=== PATIENT | female | born 1955 | race Caucasian/White ===

== ENCOUNTER 2017-07-24 19:57 | Emergency (ER) | payer OTHER ==
[~2017-07-24] VITALS: Ht 162.6 cm; Wt 95.3 kg
[~2017-07-24 19:57] MED LIST: CIPROFLOXACIN500 M1 PO; FLAGYL500 MG PO; NORCO 5-325 TA1 EACH PO; ZOFRAN ODT4 MG PO
[2017-07-24 20:19] LABS: URINE BILIRUBIN NEGATIVE (Negative); URINE BLOOD TRACE (Negative); URINE CLARITY CLEAR; URINE COLOR YELLOW; URINE GLUCOSE-RANDOM NEGATIVE (Negative); URINE KETONES NEGATIVE (Negative); URINE LEUKOCYTES-REFLEX 1+ (Negative); URINE NITRITE-REFLEX NEGATIVE (Negative); URINE PROTEIN TRACE (Negative); URINE SPECIFIC GRAVITY 1.025 (1.005-1.030)
[2017-07-24 20:25] LABS: HEMOGLOBIN 14.1 gm/dL (12.0-15.0); MCH 33.2 pg (26.0-34.0); MCHC 34.5 g/dL (28.0-37.0); MCV 96.3 fL (80.0-100.0); MPV 7.3 fl. (7.2-11.1); NUCLEATED RBCS 0 /100WBC; PLATELET COUNT* 314 thou/uL (150-400); RBC 4.26 mil/uL (4.20-5.00); RDW-CV 12.4 % (10.5-14.5); WBC 8.7 thou/uL (4.0-11.0)
[2017-07-24 20:27] LABS: MUCUS 0-3 Light strn/LPF (None Seen); SQUAMOUS >10 Many /LPF (0-3)
[2017-07-24 20:28] LABS: BACTERIA-REFLEX 1-9 Few /HPF (None Seen); CRYSTALS None Seen /LPF (None Seen); HYALINE CASTS 0-3 Few /LPF (None Seen); URINE RBC 0-2 Rare /HPF (0-2); URINE WBC-REFLEX 0-5 Rare /HPF (0-5)
[2017-07-24 20:36] LABS: ANION GAP 5 mmol/L (7-16); BUN 15 mg/dL (7-18); CALCIUM 8.7 mg/dL (8.5-10.1); CHLORIDE 104 mmol/L (98-107); CO2 33 mmol/L (21-32); CREATININE 0.9 mg/dL (0.6-1.3); GLUCOSE 132 mg/dL (70-99); POTASSIUM 3.6 mmol/L (3.5-5.1); SODIUM 142 mmol/L (136-145)
[2017-07-24 20:37] LABS: PROTIME 9.9 Seconds (9.20-11.50)
[2017-07-24 20:47] LABS: ALBUMIN 3.9 g/dL (3.4-5.0); ALKALINE PHOSPHATASE 97 U/L (46-116); LIPASE 75 U/L (73-393); NT-PRO BRAIN NAT PEPTIDE 82 pg/mL (<300); SGOT 16 U/L (15-37); SGPT 25 U/L (30-65); TOTAL BILIRUBIN 0.8 mg/dL (<0.1-1.0); TOTAL PROTEIN 7.7 g/dL (6.4-8.2); TROPONIN-I LEVEL <0.06 ng/mL (<0.06)
[2017-07-24 20:51] LABS: ABSOLUTE EOSINOPHILS 0.3 thou/uL (0.0-0.7); ABSOLUTE MONOCYTES 0.6 thou/uL (0.0-1.2); ABSOLUTE NEUTROPHILS 6.8 thou/uL (1.6-8.1)
[2017-07-24 20:52] LABS: CLUMPED PLTS OCCASIONAL; PLATELET ESTIMATE ADEQUATE
[2017-07-24] MEDS ORDERED: CIPROFLOXACIN500 M1 PO (21:59)
[2017-07-24] MEDS ORDERED: FLAGYL500 MG PO (21:59)
[2017-07-24] MEDS ORDERED: ZOFRAN ODT4 MG PO (21:59)
[2017-07-24 22:10] VITALS: BP 153/72
--- NOTE | 2017-07-25 14:44 | EKG ---
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
[2018-02-27] MEDS ORDERED: TYLENOL EXTRA500 MG PO (08:40)
== END 2017-07-24 22:11 | disposition home or self-care (01) ==
LOC: M.ERS 19:57
PROVIDERS: Emergency Medicine
DX: R11.2 Nausea with vomiting, unspecified (principal); R19.7 Diarrhea, unspecified

== ENCOUNTER → 2017-09-11 | Outpatient (CLI) | payer OTHER ==
[~2017-09-11] MED LIST changes: +ONDANSETRON HCL4 M2 PO; +TYLENOL EXTRA500 MG PO; +UNICOMPLEX M TA1 TA1 PO
== END ==
LOC: M.RAD 12:50
DX: Z12.31 Encounter for screening mammogram for malignant neoplasm of breast (principal)

== ENCOUNTER 2018-02-21 10:04 | Emergency (ER) | payer OTHER ==
[~2018-02-21] VITALS: Ht 162.6 cm; Wt 95.3 kg
[~2018-02-21 10:04] MED LIST changes: -ONDANSETRON HCL4 M2 PO; -TYLENOL EXTRA500 MG PO; -UNICOMPLEX M TA1 TA1 PO
[2018-02-21 11:41] LABS: ABSOLUTE BASOPHILS 0.1 thou/uL (0.0-0.2); ABSOLUTE EOSINOPHILS 0.1 thou/uL (0.0-0.7); ABSOLUTE LYMPHOCYTES 1.4 thou/uL (0.8-5.3); ABSOLUTE MONOCYTES 0.5 thou/uL (0.0-1.2); EOSINOPHILS 2.9 %; HEMATOCRIT 36.8 % (37.0-47.0); HEMOGLOBIN 12.6 gm/dL (12.0-15.0); MCH 33.1 pg (26.0-34.0); MCHC 34.3 g/dL (28.0-37.0); MCV 96.5 fL (80.0-100.0); MONOCYTES 9.4 %; MPV 7.4 fl. (7.2-11.1); NUCLEATED RBCS 0 /100WBC; PLATELET COUNT* 333 thou/uL (150-400); POLYS 58.7 %; RBC 3.82 mil/uL (4.20-5.00); RDW-CV 12.2 % (10.5-14.5); WBC 5.1 thou/uL (4.0-11.0)
[2018-02-21 11:51] LABS: CALCIUM 8.9 mg/dL (8.5-10.1); CREATININE 0.8 mg/dL (0.6-1.3)
[2018-02-21 11:58] LABS: ALBUMIN 3.6 g/dL (3.4-5.0); TOTAL BILIRUBIN 0.4 mg/dL (<0.1-1.0); TOTAL PROTEIN 7.3 g/dL (6.4-8.2)
[2018-02-21] MEDS ORDERED: ONDANSETRON HCL4 M2 PO (13:25)
[2018-02-21] MEDS ORDERED: NORCO 5-325 TA1 EACH PO (13:25)
[2018-02-21 14:09] VITALS: BP 162/79
[2018-02-27] MEDS ORDERED: TYLENOL EXTRA500 MG PO (08:40)
== END 2018-02-21 14:10 | disposition home or self-care (01) ==
LOC: M.ERS 10:04
PROVIDERS: Nurse Practitioner Family
DX: S82.852A Displaced trimalleolar fracture of left lower leg, initial encounter for closed fracture (principal); W10.8XXA Fall (on) (from) other stairs and steps, initial encounter; Y93.89 Activity, other specified; Y92.89 Other specified places as the place of occurrence of the external cause; Y99.8 Other external cause status

== ENCOUNTER 2018-03-02 11:20 | Observation (INO) | payer OTHER ==
[~2018-03-02] VITALS: Ht 162.6 cm; Wt 114.8 kg
--- NOTE | ~2018-03-02 | OP ---
[address] [address] OPERATIVE REPORT Name: DIANA WYLIE Room: [address] Norberto#: [id number] Admission: 03/02/18 Attend Phys: Tulio Olvera Discharge: Date of : 55 Report #: [id number] THIS REPORT FOR: //name// CC: Chetan Tang DATE OF SERVICE: 03/02/2018 PREOPERATIVE DIAGNOSIS: Left closed displaced bimalleolar ankle fracture. POSTOPERATIVE DIAGNOSIS: Left closed displaced bimalleolar ankle fracture. PROCEDURE: Open reduction internal fixation of left bimalleolar ankle fracture. SURGEON: Kanchan Garza DO ASSESSMENT TECHNICIAN: Donna Rivera DO. ANESTHESIA: General as well as 20 mL of 0.5% Marcaine with epinephrine and 20 mL of 1% lidocaine plain. ESTIMATED BLOOD LOSS: 25 mL. SPECIMENS: None. DRAINS: None. COMPLICATIONS: None. CONDITION: The patient is stable. DISPOSITION: PACU to home once awake and alert. ANTIBIOTICS: 2 grams Ancef IV preoperatively. TOURNIQUET: 76 minutes at 250 mmHg. IMPLANTS: Arthrex ankle fracture system with a distal fibula locking plate and 4.0 mm cannulated screws x 2. INDICATIONS FOR PROCEDURE: The patient is a very pleasant 62-year-old female who presented to my outpatient clinic regarding left ankle pain after a fall at home. She was noted to have a displaced bimalleolar ankle fracture. I did recommend operative fixation of this. She was quite swollen initially in clinic. We decided to wait 1 week for the swelling to go down and soft tissue to be amenable to surgery. The skin was checked [place] [address] OPERATIVE REPORT Name: INESSADIANA A Room: [address] Symone Thornton#: [id number] Admission: 03/02/18 Attend Phys: Tulio Olvera Discharge: Date of : 55 Report #: [id number] area today and noted to be ready to go. The benefits, risks, complications, and alternatives of this procedure were discussed with the patient in detail. These include but are not limited to bleeding, surgical site infection, neurovascular compromise, hardware failure, nonunion, malunion, continued pain, need for further surgery, posttraumatic arthritis, DVT, PE as well as inherent risks of anesthesia. The patient understands these risks and is agreeable to proceed. Consent was signed in the preoperative holding area and on the chart at the time of surgery. DESCRIPTION OF PROCEDURE: The patient was brought to the operating room and placed supine on the operating table. She was administered general anesthetic. A well-padded tourniquet was placed on the proximal portion of the left thigh. Left lower extremity was then sterilely prepped with chlorhexidine scrub, alcohol rinse, ChloraPrep x 2 and draped free in the usual fashion. A timeout was performed confirming correct patient, site, procedure. Surgical site markings were identified and all in the room in agreement. The procedure began with exsanguination of the left lower extremity with an Esmarch and inflation of the tourniquet to 250 mmHg. Next, a standard lateral incision was made directly over the distal fibula. Incision was carried down to the level of bone. Care was taken to protect the superficial peroneal nerve. Fracture was identified. Fracture hematoma was cleaned and the fracture was then reduced with [id number] reduction clamps to appropriate position. Reduction was confirmed with C-arm fluoroscopy. Next, a decision was made to use a distal fibular locking plate due to poor bone quality. Appropriate sized plate was chosen. This was held in place with 2 BB tacks. Plate positioning was confirmed with C-arm. Next, we drilled, measured and filled the distal holes in the plate with appropriate length 2.7 mm locking screws. We then drilled, measured and filled the top screws in the plate with 3.5 mm cortical nonlocking screws. At this time, the reduction forceps were removed and fracture was noted to be stable. We then turned our attention to the medial aspect. An incision was made directly over the medial malleolus. Dissection carried down to the level of the periosteum. Periosteum was then incised. The fracture was identified. Fracture hematoma was cleared. The fracture was then reduced with a dental pick. Two K-wires were passed across the fracture site and into the tibia with positioning confirmed with C-arm fluoroscopy. Next, we overdrilled the proximal cortex and the near cortex with the appropriate cannulated drill bit and two 40 mm partially threaded cannulated screws were placed over the K-wires with noted to be excellent reduction of the medial malleolus fracture. At this time, K wires were removed. C-arm was then used and a stress view was taken as well as Cotton test was performed and the syndesmosis was noted to be stable with no medial clear space widening. Therefore, we then irrigated the wounds with saline. Deep tissues were closed with 0 Vicryl suture in simple interrupted fashion. Subcutaneous tissues were closed with 2-0 Vicryl suture and skin was reapproximated with 3-0 nylon. Approximately 40 mL of local was injected around the incisions. We then dressed the wounds with Xeroform, 4 x 4s, ABD, soft roll and a well-padded posterior and U-plaster splint was applied. [address] [address] OPERATIVE REPORT Name: WYLIEDIANA Room: [address] Symone Thornton#: [id number] Admission: 03/02/18 Attend Phys: Tulio Olvera Discharge: Date of : 55 Report #: [id number] The patient tolerated the procedure well and was transferred to PACU in stable condition. Tourniquet had been let down at 76 minutes. POSTOPERATIVE PLAN: The patient will be discharged from PACU to home once awake and alert. She will be nonweightbearing on the left lower extremity. She is to maintain the splint clean and dry. I will see her back in clinic in 1 week for reevaluation and splint removal and they were to call with any further questions or concerns. By: 1454 [id number] Garza DO /sonya
[~2018-03-02 11:20] MED LIST changes: +ONDANSETRON HCL4 M2 PO; +TYLENOL EXTRA500 MG PO
[2018-03-02] MEDS ORDERED: UNICOMPLEX M TA1 TA1 PO (11:38)
[2018-03-02 17:00] VITALS: BP 153/82
--- NOTE | 2018-03-02 18:12 | EKG ---
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: : 1955 Requested By: Kanchan Garza Order Number: [id number] Reading MD: Chetan Mark Measurements Intervals [place] Rate: 76 P: 43 SC: 157 QRS: 27 QRSD: 101 T: 7 QT: 375 QTc: 422 Interpretive Statements Sinus rhythm Borderline T wave abnormalities Compared to ECG 07/24/2017 20:31:51 Sinus tachycardia no longer present T-wave abnormality still present Electronically Signed On 03-02-2018 18:12:33 CDT by Chetan Mark [email or web address] <ELECTRONICALLY SIGNED> By: Chetan Mark MD, [facility] 03/02/18 181 1144 1144 Chetan Mark MD, [facility] /EPI
--- NOTE | 2018-03-02 19:33 | NUR ---
Pt transferred to [facility] at 1700. Pt in PACU for ORIF Left ankle, pt c/o pain while in recovery, mutiple meds given to reduce pain, pt also received adductor canal block LLE.Pt admitted to Room 106 for pain control, pt is NWB to LLE, PT to eval pt tomorrow morning, pt VS stable and has no c/o for this nurse on [facility], Dr. Tang assuming care and orders in EMR. Hourly rounding maintained, nursing will cont to monitor, call light in reach.
[2018-03-02 20:25] VITALS: BP 138/70
[2018-03-03 00:34] VITALS: BP 149/59
[2018-03-03 05:05] LABS: HEMATOCRIT 35.1 % (37.0-47.0); HEMOGLOBIN 12.1 gm/dL (12.0-15.0)
--- NOTE | 2018-03-03 05:15 | NUR ---
PATIENT ALERT AND ORIENTED X 4. VITALS STABLE. ON 3L OF OXYGEN. VOIDING PER BEDPAN. LEFT ANKLE DRESSING C/D/I. LLE ELEVATED ON PILLOW. PAIN CONTROLLED. DENIES NAUSEA. SLEPT COMFORTABLY THROUGH THE NIGHT. HOURLY ROUNDS. BED ALARM IN USE. NURSING WILL CONTINUE TO MONITOR.
[2018-03-03 07:45] VITALS: BP 155/66
[2018-03-03 10:12] VITALS: BP 155/66
[2018-03-03] MEDS ORDERED: NORCO 5-325 TA1 EACH PO (10:49)
[2018-03-03 11:15] VITALS: BP 155/66
--- NOTE | 2018-03-03 12:00 | NUR ---
PT ALERT AND ORIENTED X 4. DENIES NAUSEA. INDICATED PAIN WITH MOVEMENT OF LEFT LEG-08/22, RECEIVED TYLENOL FOR PAIN. DRESSING C/D/I ON LEFT LEG. VS STABLE. PT ON RA. NON-WEIGHTBEARING ON LEFT LOWER EXTREMITY. UP TO CHAIR WITH THERAPY. ABLE TO USE KNEE WALKER FOR MOBILITY. IV REMOVED. PT GIVEN DISCHARGE INSTRUCTIONS AND PRESCRIPTION. PT LEFT AT 1152 WITH SPOUSE AND PERSONAL BELONGINGS TO LEAVE BY PRIVATE CAR.
[2018-03-03 12:37] VITALS: BP 155/66
== END 2018-03-03 11:52 | disposition home or self-care (01) ==
LOC: M.SUR 11:20 → M.ORTHSURG 16:05 → M.TBA 16:05 → M.ORTHSURG 16:05
PROVIDERS: Orthopaedic Surgery; ADMIT Internal Medicine
DX: S82.842A Displaced bimalleolar fracture of left lower leg, initial encounter for closed fracture (principal); R52 Pain, unspecified; X58.XXXA Exposure to other specified factors, initial encounter; Y93.89 Activity, other specified; Y92.89 Other specified places as the place of occurrence of the external cause; Y99.8 Other external cause status; Z98.890 Other specified postprocedural states

== ENCOUNTER → 2018-09-13 | Outpatient (CLI) | payer OTHER ==
[~2018-09-13] MED LIST changes: +UNICOMPLEX M TA1 TA1 PO
== END ==
LOC: M.RAD 13:00
DX: Z12.31 Encounter for screening mammogram for malignant neoplasm of breast (principal)

== ENCOUNTER → 2018-10-17 | Outpatient (CLI) | payer OTHER ==
[2018-10-17 15:17] LABS: HEMATOCRIT 40.6 % (37.0-47.0); HEMOGLOBIN 13.8 gm/dL (12.0-15.0); MCH 32.5 pg (26.0-34.0); MCHC 34.1 g/dL (28.0-37.0); MCV 95.3 fL (80.0-100.0); MPV 7.6 fl. (7.2-11.1); NUCLEATED RBCS 0 /100WBC; PLATELET COUNT* 325 thou/uL (150-400); RBC 4.26 mil/uL (4.20-5.00); WBC 5.4 thou/uL (4.0-11.0)
[2018-10-17 15:43] LABS: ALBUMIN 3.8 g/dL (3.4-5.0); ALKALINE PHOSPHATASE 93 U/L (46-116); ANION GAP 8 mmol/L (7-16); BUN 14 mg/dL (7-18); CALCIUM 9.2 mg/dL (8.5-10.1); CHLORIDE 102 mmol/L (98-107); CHOLESTEROL 175 mg/dL (<200); CO2 29 mmol/L (21-32); CREATININE 0.8 mg/dL (0.6-1.3); DIRECT BILIRUBIN 0.1 mg/dL (<0.1-0.3); GLUCOSE 117 mg/dL (70-99); HDL CHOLESTEROL 46 mg/dL (>40); LDL CHOLESTEROL 100 mg/dL (<100); POTASSIUM 3.9 mmol/L (3.5-5.1); SGOT 16 U/L (15-37); SGPT 23 U/L (30-65); SODIUM 139 mmol/L (136-145); TC:HDL 3.8 Ratio (Not establshd); TOTAL BILIRUBIN 0.5 mg/dL (<0.1-1.0); TOTAL PROTEIN 7.6 g/dL (6.4-8.2); TRIGLYCERIDE 147 mg/dL (<150); VLDL 29 mg/dL (<40)
[2018-10-17 15:48] LABS: SERUM ASSESSMENT Clear
[2018-10-17 16:05] LABS: ABSOLUTE EOSINOPHILS 0.1 thou/uL (0.0-0.7); ABSOLUTE LYMPHOCYTES 2.3 thou/uL (0.8-5.3); ABSOLUTE MONOCYTES 0.3 thou/uL (0.0-1.2); ABSOLUTE NEUTROPHILS 2.7 thou/uL (1.6-8.1)
[2018-10-17 16:06] LABS: PLATELET ESTIMATE ADEQUATE
[2018-10-18 02:08] LABS: GLYCOHEMOGLOBIN (HGB A1C) 6.1 % (4.8-5.6)
== END ==
LOC: M.RAD 14:45
PROVIDERS: Registered Nurse Diabetes Educator
DX: Z13.1 Encounter for screening for diabetes mellitus (principal); M85.88 Other specified disorders of bone density and structure, other site; Z68.38 Body mass index [BMI] 38.0-38.9, adult

== ENCOUNTER → 2018-11-13 | Outpatient (CLI) | payer OTHER ==
--- NOTE | 2018-11-13 18:37 | EXE ---
[place] [address] STRESS ECHOCARDIOGRAM Name: WYLIEDIANA Room: [facility]#: [id number] Admission: 11/13/18 Attend Phys: William Newby, Discharge: Date of : 55 Date of Service: 11/13/18 1836 Report #: [id number] THIS REPORT FOR: //name// APPROVED REPORT Study performed: 11/13/2018 15:33:54 Exam: Stress Echocardiogram Indication: Palpitations Patient Location: Out-Patient Stress Nurse: Sandra Tam RN Supervising Physician: William Newby MD Ht: 5 ft 4 in HR: 82 bpm BP: 145/91 mmHg Medical History Cardiac Risk Factors: FHX of CAD Procedure The patient underwent an Exercise Stress Test using the Marcio Protocol. Blood pressure, heart rate, and EKG were monitored. An Echocardiogram was performed by mold repair technician in four stages in quad fashion. At peak stress, four selected images were obtained and placed side by side with resting images for comparison. Stress Test Details Stress Test: Exercise stress testing was performed using a Marcio protocol. HR Resting HR: 82 bpm Max Heart Rate (APMHR): 157 bpm Max HR Achieved: 143 bpm Target HR (85% APMHR): 133 bpm % of APMHR: 91 Recovery HR: 86 bpm HR response to stress: Normal HR response to stress BP Resting BP: 145/91 mmHg Max BP: 216/81 mmHg Recovery BP: 164/78 mmHg BP response to stress: Normal blood pressure response to stress. ECG Resting ECG: Sinus Rhythm Stress ECG: [place] [address] STRESS ECHOCARDIOGRAM Name: DIANA WYLIE Room: [facility]#: [id number] Admission: 11/13/18 Attend Phys: William Newby, Discharge: Date of : 55 Date of Service: 11/13/18 1836 Report #: [id number] ST Change: None Arrhythmia: None Recovery ECG: Sinus Rhythm Recovery ST Change: None Recovery Arrhythmia: None Clinical Reason for Termination: Maximal effort, Completed protocol Exercise duration: 4 min 05 sec Highest Stage Achieved: Stage 2: 2.5 mph at 12% grade. Exercise capacity: 5.89 METs The patient had no significant cardiac symptoms with standard Marcio protocol exercise. Stress ECG Conclusion The baseline EKG shows sinus rhythm without significant ST or T wave abnormality. EKGs obtained during and post exercise showed sinus rhythm and sinus tachycardia with no significant ST or T wave changes when compared baseline. There were no stress-induced arrhythmias. Pre-Stress Echo The resting Echocardiogram showed normal left ventricular contractility with an estimated Ejection Fraction of about 55-60%. Post-Stress Echo The stress Echocardiogram showed normal left ventricular contractility with an estimated Ejection Fraction of about >70%. Conclusion Clinical Response: Non-ischemic Exercise Capacity: Average Stress ECG Response: Non-ischemic Stress Echo Images: Non-ischemic Other Information Study Quality: Good <ELECTRONICALLY SIGNED> By: William Newby MD, [facility] 11/13/181835 35 35 William Newby MD, FACC /INF
== END ==
LOC: M.CRD 14:56
DX: R00.2 Palpitations (principal)

== ENCOUNTER 2019-03-23 08:50 | Emergency (ER) | payer OTHER ==
[~2019-03-23] VITALS: Ht 162.6 cm; Wt 97.5 kg
[2019-03-23] MEDS ORDERED: BACTRIM DS TAB1 EAC1 PO (09:14)
[2019-03-23 09:19] VITALS: BP 142/89
== END 2019-03-23 09:19 | disposition home or self-care (01) ==
LOC: M.ERS 08:50
DX: L03.116 Cellulitis of left lower limb (principal)

== ENCOUNTER → 2019-09-19 | Outpatient (CLI) | payer OTHER ==
[~2019-09-19] MED LIST changes: +BACTRIM DS TAB1 EAC1 PO
== END ==
LOC: M.RAD 12:51
DX: Z12.31 Encounter for screening mammogram for malignant neoplasm of breast (principal)

== ENCOUNTER → 2020-09-21 | Outpatient (CLI) | payer OTHER | LOC: M.RAD 12:38 | PROVIDERS: ATTEND Obstetrics & Gynecology | DX: Z12.31 Encounter for screening mammogram for malignant neoplasm of breast (principal) ==

== ENCOUNTER 2020-10-15 15:25 | Inpatient (IN) | payer OTHER ==
[~2020-10-15] VITALS: Ht 162.6 cm; Wt 100.7 kg
[2020-10-15 15:31] VITALS: BP 138/60
[2020-10-15 15:45] LABS: ABSOLUTE BASOPHILS 0.1 thou/uL (0.0-0.2); ABSOLUTE EOSINOPHILS 0.1 thou/uL (0.0-0.7); ABSOLUTE LYMPHOCYTES 2.4 thou/uL (0.8-5.3); ABSOLUTE MONOCYTES 0.7 thou/uL (0.0-1.2); ABSOLUTE NEUTROPHILS 4.4 thou/uL (1.6-8.1); BASOPHILS 1.1 %; EOSINOPHILS 1.6 %; HEMATOCRIT 38.9 % (37.0-47.0); HEMOGLOBIN 13.4 gm/dL (12.0-15.0); LYMPHOCYTES 31.4 %; MCH 32.7 pg (26.0-34.0); MCHC 34.3 g/dL (28.0-37.0); MCV 95.3 fL (80.0-100.0); MONOCYTES 8.5 %; MPV 7.3 fl. (7.2-11.1); NUCLEATED RBCS 0 /100WBC; PLATELET COUNT* 352 thou/uL (150-400); POLYS 57.4 %; RBC 4.09 mil/uL (4.20-5.00); RDW-CV 12.3 % (10.5-14.5); WBC 7.8 thou/uL (4.0-11.0)
[2020-10-15 15:56] LABS: CALCIUM 8.8 mg/dL (8.5-10.1); CREATININE 0.7 mg/dL (0.6-1.3); POTASSIUM 4.9 mmol/L (3.5-5.1)
[2020-10-15 16:06] LABS: ALBUMIN 3.7 g/dL (3.4-5.0); TOTAL BILIRUBIN 0.3 mg/dL (<0.1-1.0); TOTAL PROTEIN 7.6 g/dL (6.4-8.2)
[2020-10-15 18:35] VITALS: BP 131/63
--- NOTE | 2020-10-15 18:35 | NUR ---
ER ADMIT TO RM 209 PATIENT TO VIA CART UP INDEP TELEPHONE REPORT GIVEN PRIOR TO ARRIVAL DENIES PAIN CARDIZEM GTT at 2.5MG L AC
[2020-10-15 18:37] VITALS: BP 128/56
[2020-10-15 20:00] VITALS: BP 122/68
[2020-10-16] VITALS: BP 137/49
[2020-10-16 04:00] VITALS: BP 137/52
[2020-10-16 04:45] LABS: ABSOLUTE BASOPHILS 0.1 thou/uL (0.0-0.2); ABSOLUTE EOSINOPHILS 0.2 thou/uL (0.0-0.7); ABSOLUTE LYMPHOCYTES 2.4 thou/uL (0.8-5.3); ABSOLUTE MONOCYTES 0.6 thou/uL (0.0-1.2); ABSOLUTE NEUTROPHILS 2.6 thou/uL (1.6-8.1); BASOPHILS 0.9 %; EOSINOPHILS 2.8 %; HEMATOCRIT 36.6 % (37.0-47.0); HEMOGLOBIN 12.6 gm/dL (12.0-15.0); LYMPHOCYTES 40.9 %; MCH 33.2 pg (26.0-34.0); MCHC 34.5 g/dL (28.0-37.0); MCV 96.2 fL (80.0-100.0); MONOCYTES 10.1 %; MPV 7.7 fl. (7.2-11.1); NUCLEATED RBCS 0 /100WBC; PLATELET COUNT* 338 thou/uL (150-400); POLYS 45.3 %; RBC 3.81 mil/uL (4.20-5.00); RDW-CV 12.3 % (10.5-14.5); WBC 5.8 thou/uL (4.0-11.0)
[2020-10-16 05:07] LABS: ANION GAP 7 mmol/L (7-16); BUN 10 mg/dL (7-18); CALCIUM 8.7 mg/dL (8.5-10.1); CHLORIDE 104 mmol/L (98-107); CHOLESTEROL 129 mg/dL (<200); CO2 28 mmol/L (21-32); CREATININE 0.7 mg/dL (0.6-1.3); GLUCOSE 117 mg/dL (70-99); HDL CHOLESTEROL 47 mg/dL (>40); LDL CHOLESTEROL 65 mg/dL (<100); SODIUM 139 mmol/L (136-145); TC:HDL 2.7 Ratio (Not establshd); TRIGLYCERIDE 86 mg/dL (<150); VLDL 17 mg/dL (<40)
[2020-10-16 05:12] LABS: POTASSIUM 3.6 mmol/L (3.5-5.1)
[2020-10-16 06:37] LABS: SERUM ASSESSMENT Clear
[2020-10-16 07:45] VITALS: BP 116/56
--- NOTE | 2020-10-16 09:53 | EKG ---
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 : 1955 Requested By: Sander Fulton Order Number: [id number] MD: Chetan Mark Measurements Intervals [place] Rate: 151 P: 86 MA: 86 QRS: -22 QRSD: 156 T: -86 QT: 358 QTc: 568 Interpretive Statements atrial flutter Nonspecific intraventricular conduction delay Borderline repol abnormality, diffuse leads Compared to ECG 03/02/2018 11:44:29 Intraventricular conduction delay now present Sinus rhythm no longer present Electronically Signed On 10-16-2020 9:53:19 CDT by Chetan Mark [email or web address] <ELECTRONICALLY SIGNED> By: Chetan Mark MD, FAC 10/16/20 0953 1531 1531 Chetan Mark MD, FAC /EPI
--- NOTE | 2020-10-16 09:54 | EKG ---
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
[2020-10-16 12:00] VITALS: BP 130/65
--- NOTE | 2020-10-16 12:49 | NUR ---
ASSUMED CARE OF PT AT 0730. PT RESTING IN BED. A&0X4, DENIES ANY PAIN OR SHORTNESS OF BREATH AT THIS TIME. TRACING SB/SR ON THE SOIL CONSERVATION TECHNICIAN. RATE IN THE 50'S-60'S. CARDIOLOGY HERE TO SEE PT. ORDERS RECEIVED FOR PO SOTALOL AND ASPIRIN-GIVEN PER EMAR. PT ON RA SAT UPPER 90'S. PT UP AD ELYSIA IN ROOM. CARDIZEM GTT AND IVF DISCONTINUED THIS AM-REFER TO EMAR. PT GOAL FOR TODAY IS SOTALOL LOAD AND MAINTAIN SINUS RHYTHM. AM ASSESSMENT CHARTED. MEDICATIONS PER JUL. PT REPOSITIONS SELF. HOURLY ROUNDING OBSERVED. BED IN LOW POSITION. CALL LIGHT WITHIN REACH. WILL CONTINUE PLAN OF CARE.
--- NOTE | 2020-10-16 14:10 | NUR ---
Pt is A&O. Resides at home with . Independent. No DME. No hx of HH or SNF. Goal is home at dc. Anticipate dc on Monday, no needs. Cards consulted, work on rate control
[2020-10-16 16:23] VITALS: BP 144/63
[2020-10-16 20:00] VITALS: BP 138/67
[2020-10-17 02:06] LABS: GLYCOHEMOGLOBIN (HGB A1C) 5.9 % (4.8-5.6)
[2020-10-17 04:00] VITALS: BP 111/56
[2020-10-17 08:00] VITALS: BP 121/53
--- NOTE | 2020-10-17 09:50 | CON ---
[address] [address] CONSULTATION Name: DIANA WYLIE Krista Room: [address] IN .R.#: [id number] Admission: 10/15/20 Attend Phys: Swati Rosario Discharge: Date of : 55 Report #: [id number] THIS REPORT FOR: cc: Remedios Norman Jillian DO Blick, David R. MD [facility] ~ DOC #: [id number] Chetan Mark MD [facility] DATE OF CONSULTATION: 10/16/2020 CARDIOLOGY CONSULTATION HISTORY OF PRESENT ILLNESS: The patient is a 65-year-old white female who I was asked to see in the hospital today after she presented with atrial fibrillation. The patient apparently had previous coronary artery calcium scoring. Apparently, her calcium score was abnormal. However, she underwent a stress echocardiogram here at [place] in 11/2018 when she complained of palpitations. There were no ST segment changes noted. Myocardial perfusion was normal with an ejection fraction of 60% with no evidence of ischemia. She actually saw Dr. Newby in the office for Cardiology consultation. She notes she has had previous vascular screening by [facility] that showed no carotid stenosis. She stays very active, going for walks. She notes in 06/2020 she had an episode where the heart was beating fast and irregular, last about an hour and then resolved. Yesterday, she went out for lunch, then she felt her heart beating fast and irregular, felt somewhat lightheaded. Her brought her to the emergency room. She was found to be in atrial fibrillation. She was started on IV diltiazem. She converted to sinus rhythm. Cardiology consultation requested. She denies a history of exertional chest tightness, shortness of breath, syncope, fever, cough, swelling or bleeding. PAST MEDICAL HISTORY: She has had previous ankle surgery, hemicolectomy for diverticular disease. No history of hypertension, diabetes or hyperlipidemia. MEDICATIONS: She is on no medication. ALLERGIES: She has no known drug allergies. FAMILY HISTORY: Her mother and 2 brothers have had atrial fibrillation. SOCIAL HISTORY: She is . 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 No smoking. Rarely drinks alcohol. Rarely drinks caffeine. REVIEW OF SYSTEMS: She is overweight, being 5 feet 4 inches, 235 pounds. She denies snoring at night. No stroke. No asthma. No liver disease, kidney disease, GI bleeding, cancer, psychiatric illness [place] [address] CONSULTATION Name: DIANA WYLIE Room: [address]#: [id number] Admission: 10/15/20 Attend Phys: Swati Rosario Discharge: Date of : 55 Report #: [id number] PHYSICAL EXAMINATION: GENERAL: A middle-aged female who appears in no distress. VITAL SIGNS: Showed a blood pressure 124/70, pulse is 70 and she is afebrile. HEENT: She was anicteric. Conjunctivae pink. Mucosa is moist. NECK: Veins not appear distended. No carotid bruits. Neck is supple. CHEST: Clear to auscultation. HEART: Regular rate and rhythm without murmur. ABDOMEN: Obese, soft and nontender. EXTREMITIES: Had no edema. Dorsalis pedis pulse 3+ bilaterally. SKIN: Cool and dry. NEUROLOGIC: Nonfocal. LABORATORY DATA: Her ECG on admission yesterday showed what appeared to represent atrial flutter with a rapid ventricular response rate, nonspecific ST and T-wave changes. Today on the monitor, the patient appears to be in a sinus rhythm. Her workup in the emergency room yesterday, she had a portable chest x-ray that showed normal heart size and clear lung mcginnis. The patient had lab work in the emergency room yesterday including potassium 3.6 and creatinine 0.7. Liver function studies were normal. Troponin less than 0.06. BNP 71. Cholesterol 129, triglyceride 86, HDL 47 and LDL 65. TSH in 2019 was 1.7. Her white blood cell count 5.8 and hemoglobin 12.6. Her COVID antigen stat test was negative. IMPRESSION AND RECOMMENDATIONS: 1. Paroxysmal atrial fibrillation. I would consider starting sotalol. If she has recurrent atrial fibrillation, we would consider anticoagulation. 2. Obesity. 3. Previous abnormal coronary artery calcium score. Previous stress test was negative. 4. Glucose intolerance. Previous hemoglobin A1c was 6.1. Chetan Mark MD [facility] LUIS ANGEL/CINDA <ELECTRONICALLY SIGNED> By: Chetan Mark MD, [facility] 10/17/20 0950 0726 37Chetan Mark MD, [facility] /nt
--- NOTE | 2020-10-17 11:36 | NUR ---
ASSUMED CARE OF PT AT 0730. PT SITTING AT EDGE OF BED WAITING FOR BREAKFAST. A&0X4, DENIES ANY PAIN OR SHORTNESS OF BREATH AT THIS TIME. TRACING SB/SR ON THE ELEVATED WORK PLATFORM OPERATOR. ON SOTALOL LOAD-CARDIOLOGY HERE TO SEE PT. ORDERS RECEIVED TO CUT SOTALOL IN HALF-40MG PO BID-REFER TO EMAR. ON RA SAT UPPER 90'S. PT UP AD ELYSIA IN ROOM. PT GOAL FOR TODAY IS MAINTAIN SINUS RHTYHM, MAINTAIN HEART RATE ABOVE 55 AND SOTALOL LOAD. AM ASSESSMENT CHARTED. MEDICATIONS PER JUL. PT REPOSITIONS SELF. HOURLY ROUNDING OBSERVED. BED IN LOW POSITION. CALL LIGHT WITHIN REACH. WILL CONTINUE PLAN OF CARE.
[2020-10-17 12:00] VITALS: BP 114/51
[2020-10-17 19:25] VITALS: BP 122/47
[2020-10-17 20:00] VITALS: BP 116/56
[2020-10-18 00:27] VITALS: BP 112/45
[2020-10-18 05:15] VITALS: BP 130/68
[2020-10-18 06:04] LABS: ABSOLUTE BASOPHILS 0.1 thou/uL (0.0-0.2); ABSOLUTE EOSINOPHILS 0.1 thou/uL (0.0-0.7); ABSOLUTE LYMPHOCYTES 2.3 thou/uL (0.8-5.3); ABSOLUTE MONOCYTES 0.4 thou/uL (0.0-1.2); ABSOLUTE NEUTROPHILS 1.8 thou/uL (1.6-8.1); BASOPHILS 1.8 %; EOSINOPHILS 2.5 %; HEMATOCRIT 34.6 % (37.0-47.0); LYMPHOCYTES 49.2 %; MCHC 34.6 g/dL (28.0-37.0); MCV 95.5 fL (80.0-100.0); MONOCYTES 8.7 %; MPV 7.7 fl. (7.2-11.1); NUCLEATED RBCS 0 /100WBC; PLATELET COUNT* 328 thou/uL (150-400); POLYS 37.8 %; RBC 3.63 mil/uL (4.20-5.00); RDW-CV 12.1 % (10.5-14.5); WBC 4.7 thou/uL (4.0-11.0)
[2020-10-18 06:11] LABS: CALCIUM 8.6 mg/dL (8.5-10.1); CREATININE 0.7 mg/dL (0.6-1.3); POTASSIUM 3.8 mmol/L (3.5-5.1)
[2020-10-18 07:45] VITALS: BP 131/83
--- NOTE | 2020-10-18 09:09 | NUR ---
ASSUMED CARE OF PT AT 0730. PT A&0X4, DENIES ANY PAIN OR SHORTNESS OF BREATH AT THIS TIME. TRACING SB/SR ON THE FRAUD REPRESENTATIVE. RATE IN THE 50'S-60'S. SOTALOL LOADING IN PLACE. ON RA SAT UPPER 90'S. PT UP AD ELYSIA IN ROOM. PT GOAL FOR TODAY IS DISCHARGE PLANNING TO HOME AND OBTAIN OCCULT BLOOD STOOL SAMPLE. PT STATES SHE HAS BEEN HAVING DARK STOOLS. AM ASSESSMENT CHARTED. MEDICATIONS PER JUL. PT REPOSITIONS SELF. HOURLY ROUNDING OBSERVED. BED IN LOW POSITION. CALL LIGHT WITHIN REACH. WILL CONTINUE PLAN OF CARE.
[2020-10-18] MEDS ORDERED: ASPIRIN325 PO (10:16)
[2020-10-18] MEDS ORDERED: SORINE 80 MG TA80 M1 PO (10:16)
[2020-10-18 10:20] VITALS: BP 131/83
--- NOTE | 2020-10-18 11:42 | NUR ---
DISCHARGE ORDERS RECEIVED. DISCHARGE INSTRUCTIONS, CARE NOTES, E SCRIPTS AND FOLLOW UP APPTS GIVEN TO PT. PT COMMUNICATES UNDERSTANDING OF DISCHARGE TEACHING. IV AND CRM ANALYST REMOVED. PT DISCHARGED WITH ALL BELONGINGS AND PAPERWORK VIA WHEELCHAIR WITH NURSING STAFF TO SPOUSE OWN PERSONAL VEHICLE.
== END 2020-10-18 11:41 | disposition home or self-care (01) | DRG 309 ==
LOC: M.ERS 15:25 → M.2W 16:49 → M.TBA-ER 16:49 → M.2W 19:34
PROVIDERS: Emergency Medicine Emergency Medical Services; ADMIT Internal Medicine; ATTEND Internal Medicine
DX: I48.20 Chronic atrial fibrillation, unspecified (principal); D68.8 Other specified coagulation defects; E66.9 Obesity, unspecified; E74.39 Other disorders of intestinal carbohydrate absorption; I48.92 Unspecified atrial flutter; I10 Essential (primary) hypertension; Z20.822 Contact with and (suspected) exposure to COVID-19; Z79.899 Other long term (current) drug therapy; Z90.49 Acquired absence of other specified parts of digestive tract; Z68.38 Body mass index [BMI] 38.0-38.9, adult